=== PATIENT | female | born 1960 | race Two or more races ===

== ENCOUNTER 2025-01-04 16:32 | Emergency (ER) | payer BC ==
[~2025-01-04] VITALS: Ht 157.5 cm; Wt 72.6 kg
[2025-01-04] MEDS ORDERED: HORIZANT300 MG PO (16:46)
[2025-01-04] MEDS ORDERED: ABILIFY2 MG PO (16:47)
[2025-01-04] MEDS ORDERED: TRAZODONE HCL150 MG PO (16:47)
[2025-01-04] MEDS ORDERED: VENLAFAXINE HC150 M1 PO (16:47)
[2025-01-04] MEDS ORDERED: CLONAZEPAM1 M1 PO (16:47)
[2025-01-04] MEDS ORDERED: CEFTRIAXONE SODIUM 1,000 MG VIAL IM ONE (18:30)
[2025-01-04] MEDS ORDERED: KETOROLAC TROMETHAMINE 30 MG VIAL IM ONE (18:30)
[2025-01-04] MEDS ORDERED: SILVER SULFADIAZINE 50 GM JAR TOP ONE (18:30)
[2025-01-04] MEDS ORDERED: IBUPROFEN800 MG PO (18:31)
[2025-01-04] MEDS ORDERED: CEPHALEXIN500 MG PO (18:31)
== END 2025-01-04 19:05 | disposition home or self-care (01) ==
LOC: ER 16:32
DX: T22.212A Burn of second degree of left forearm, initial encounter (principal); I10 Essential (primary) hypertension